=== PATIENT | female | born 1940 | race Caucasian/White ===

== ENCOUNTER → 2022-07-15 | Outpatient (CLI) | payer MEDICARE, OTHER ==
[~2022-07-15] MED LIST: IBUP800 PO
== END ==
LOC: LAB SHORT 15:30 → LAB 15:30
DX: R82.90 Unspecified abnormal findings in urine (principal)
CPT/HCPCS: 87086

== ENCOUNTER 2022-07-24 01:21 | Inpatient (IN) | payer MEDICARE, OTHER ==
[~2022-07-24] VITALS: Ht 149.9 cm; Wt 53.7 kg
[2022-07-24] MEDS ORDERED: SYNTHROID50 MC1 PO (02:13)
[2022-07-24] MEDS ORDERED: CARBIDOPA-LEVO1 EA15 PO (02:13)
[2022-07-24] MEDS ORDERED: TRAZ50 PO (02:13)
[2022-07-24] MEDS ORDERED: FOSAMAX70 MG PO (02:13)
[2022-07-24 02:31] LABS: BASOPHILS ABSOLUTE AUTO 0.02 K/mm3 (0.00-0.23); BASOPHILS PERCENT AUTO 0 % (0-2); EOSINOPHILS ABSOLUTE AUTO 0.01 K/mm3 (0.00-0.68); EOSINOPHILS PERCENT AUTO 0 % (0-6); Hematocrit 38.4 % (33.0-51.0); Hemoglobin 13.3 g/dL (11.5-16.0); IMMATURE GRAN ABSOLUTE AUTO 0.05 K/mm3 (0.00-0.10); IMMATURE GRAN PERCENT AUTO 1 % (0-1); LYMPHOCYTES PERCENT AUTO 39 % (21-46); MONOCYTES ABSOLUTE AUTO 0.19 K/mm3 (0.16-1.47); MONOCYTES PERCENT AUTO 3 % (4-13); Mean Corpuscular HGB 30.1 pg (26.0-34.0); Mean Corpuscular HGB Conc 34.6 g/dL (31.5-36.5); Mean Corpuscular Volume 87 fL (80-100); Mean Platelet Volume 10.3 fL (9.1-12.4); NEUTROPHILS ABSOLUTE AUTO 4.34 K/mm3 (1.96-9.15); NEUTROPHILS PERCENT AUTO 57 % (41-73); Platelet Count 414 K/mm3 (150-400); RDW Coefficient Variation 14.7 % (11.7-14.2); RDW Standard Deviation 46.6 fL (35.1-46.3); Red Blood Cell Count 4.42 M/mm3 (3.80-5.20); White Blood Cell Count 7.61 K/mm3 (4.00-11.30)
[2022-07-24 04:36] LABS: Albumin, Blood 3.1 g/dL (3.4-5.0); Bilirubin, Total 0.9 mg/dL (0.1-1.0); Bun/Creatinine Ratio 48.6 (12.0-20.0); Calcium, Blood 9.8 mg/dL (8.5-10.1); Creatinine, Blood 0.91 mg/dL (0.40-1.00); Globulin, Blood 3.1 g/dL (2.2-4.0); Potassium, Blood 2.4 mmol/L (3.5-5.5); Total Protein, Blood 6.2 g/dL (6.4-8.2)
--- NOTE | 2022-07-24 09:34 | NUR ---
PT ADMITTED TO ICU FROM ER AT 0841 FOR BOWEL PERF. PLANS TO TAKE PT TO SURGERY SHORTLY. PT AWAKE, ORIENTED AND ALERT. PT DENIES PAIN AT THIS TIME BUT HAS TENDERNESS WHEN ABD PALP. ABD IS VERY DISTENDED AND FIRM W ABSENT BT'S. PT DENIES NAUSEA. BP IS LOW W MAP >65. HR SINUS 80'S. AFEBRILE. SKIN WARM W GOOD CAP REFILL. K+ 40MEQ INFUSING. POWERGLIDE PLACED TO NEFTALY. PT LIMITED CODE, OKAY W INTUBATION, DOES NOT WANT CPR. BOLUS OF LR STARTED PER ANESTHEOLOGIST. PT'S DAUGHTER AND GRANDSON ARE AT BEDSIDE. NECKLACE AND WATCH GIVEN TO GRANDSON PER PT REQUEST.
--- NOTE | 2022-07-24 10:40 | NUR ---
PREPARED PT FOR SURGERY IN ICU ROOM. ABDOMEN PREPPED, SCDS PLACED ON, PAPERWORK ARRANGED.
[2022-07-24 11:32] LABS: Albumin, Blood 2.3 g/dL (3.4-5.0); Albumin/Globulin Ratio 0.9 (0.8-1.8); Bilirubin, Total 0.9 mg/dL (0.1-1.0); Bun/Creatinine Ratio 41.5 (12.0-20.0); Calcium, Blood 8.5 mg/dL (8.5-10.1); Creatinine, Blood 0.96 mg/dL (0.40-1.00); Globulin, Blood 2.5 g/dL (2.2-4.0); Potassium, Blood 2.5 mmol/L (3.5-5.5); Total Protein, Blood 4.8 g/dL (6.4-8.2)
--- NOTE | 2022-07-24 12:08 | NUR ---
DR ODOM AND DR MATTA IN TO SEE PT. PT TO OR AT 1208. LR BOLUS INFUSED X 2L. K+ RECHECKED AND REULTS GIVEN TO DR ODOM. ADDITIONAL 40MEQ ORDERED. DR MATTA ORDERED AN ADDITIONAL 2L LR TO BE STARTED/KVO.
--- NOTE | 2022-07-24 13:15 | NUR ---
07/24/22 1315 Travon Rothman ON SCHEDULED ANTIBIOTIC ZOSYN 4.5GM LAST DOSE GIVEN AT 0609
--- NOTE | 2022-07-24 18:44 | NUR ---
PT RETURNED FROM OR S/P TOTAL COLECTOMY WITH END ILEOSTOMY. STOMA PINK, NO OUTPUT. REPORT GIVEN AT BEDSIDE BY ANESTHESIOLOGIST AND HOT DOG VENDOR. RT CALLED PRIOR TO PT ARRIVING PT WOULD BE RETURNING INTUBATED. PT ARRIVED AT 1630 AND WAS EXTUBATED AROUND [address] MATTA. 100% NRB MASK PLACED, PT HAD ORAL AIRWAY IN. HEAD HEAD MIDLINE, RT AT BEDSIDE, PT STARTED TO DESATURATE. LUNGS COARSE W RHONCHI T/O. DR MANCUSO AT BEDSIDE SHORTLY AFTER EXTUBATION AND TOOK OVER CARE. PT GIVEN 20 OF ETOM. AT 1639 AND WAS REINTUBATED AT 1641 W 7.5 TUBE 24CM AT GUMS. PROPOFOL WAS STARTED THROUGH LEFT FOOT IV, LEVOPHED WAS AVAILABLE AT BEDSIDE. CENTRAL LINE TO LEFT IJ WAS PLACED RIGHT AFTER INTUBATION. AFTER LINE VARIFIED BY XR, PROPOFOL AND LEVOPHED PLACED TO CL. FENTANYL WAS GIVEN FOR PAIN, WHICH DID DROP PT'S PRESSURE. OGT PLACED AND VARIFIED BY XRAY AND PLACED TO LIS. PT WAS SUSPECTED OF POSSIBLE ASPIRATION IN OR. DARK VANESSA SPUTUM SAMPLE SENT. PROPOFOL IS NOW RUNNING AT 35MCG, LEVOPHED AT 2MCG, NS AT 100CC/HR. SCD'S PLACED. MIDLINE DRSG C/D/I. ABSENT BOWEL TONES. STAT LABS SENT. VENT SETTINGS 16/350/50/5. HARVEY WAS PLACED IN OR, ONLY 25CC U/O, DR MANCUSO AWARE. PT'S DAUGHTER AND FAMILY UPDATED BY DR ODOM, DR MATTA, AND DR MANCUSO. RIGHT AND LEFT ARM IV'S DID INFILTRATE. IV'S DC'D, ARM'S WRAPPED IN GAUZE AND REMOVED DURING BEDSIDE REPORT. BRUISING TO BOTH UPPER ARMS NEAR BEND IN ARM.
[2022-07-24 18:45] LABS: Hematocrit 37.2 % (33.0-51.0); Hemoglobin 12.5 g/dL (11.5-16.0); Mean Corpuscular HGB Conc 33.6 g/dL (31.5-36.5); Mean Corpuscular Volume 89 fL (80-100); Mean Platelet Volume 9.7 fL (9.1-12.4); Platelet Count 329 K/mm3 (150-400); RDW Standard Deviation 48.8 fL (35.1-46.3); Red Blood Cell Count 4.17 M/mm3 (3.80-5.20); White Blood Cell Count 4.79 K/mm3 (4.00-11.30)
[2022-07-24 19:01] LABS: Albumin, Blood 1.7 g/dL (3.4-5.0); Albumin/Globulin Ratio 0.8 (0.8-1.8); Calcium, Blood 7.7 mg/dL (8.5-10.1); Creatinine, Blood 0.87 mg/dL (0.40-1.00); Globulin, Blood 2.1 g/dL (2.2-4.0); Magnesium, Blood 1.4 mg/dL (1.6-2.4); Potassium, Blood 3.8 mmol/L (3.5-5.5); Total Protein, Blood 3.8 g/dL (6.4-8.2)
[2022-07-24 19:19] LABS: BAND PERCENT MAN 2 % (0-8); BASOPHILS PERCENT MAN 0 % (0-2); EOSINOPHILS PERCENT MAN 0 % (0-6); LYMPHOCYTES % ATYPICAL MANUAL 2 % (0-0); LYMPHOCYTES ABSOLUTE MAN 0.76 K/mm3 (0.84-5.20); LYMPHOCYTES PERCENT MAN 14 % (21-46); MONOCYTES ABSOLUTE MAN 0.19 K/mm3 (0.16-1.47); MONOCYTES PERCENT MAN 4 % (4-13); NEUTROPHILS ABSOLUTE MAN 3.83 K/mm3 (1.96-9.15); SEG NEUTROPHILS PERCENT MAN 78 % (41-73); TOTAL CELLS COUNTED 100
[2022-07-24 19:46] LABS: PCO2 Arterial 26.9 mmHg (35-45); PO2 Arterial 94.1 mmHg (80-100); pH Blood Arterial 7.48 (7.35-7.45)
--- NOTE | 2022-07-24 20:00 | NUR ---
ASSUMPTION OF CARE NOTE: INITIAL ASSESMENT DONE OF PATIENT. INTUBATED ACVC 60% PEEP 5 TV 350 RR 16. PROPOFOL AT 35 MCG/KG/MIN, LR AT 100, AND LEVOPHED AT 2 MCG/MIN. PT FAMILY AT BEDSIDE.
[2022-07-25 03:35] LABS: Base Excess Venous -2.3 mmol/L; Bicarbonate Venous 22.6 mmol/L (24.0-30.0); PCO2 Venous 31.4 mmHg (38-42); pH Blood Venous 7.45 (7.34-7.37)
[2022-07-25 03:46] LABS: Hematocrit 35.5 % (33.0-51.0); Hemoglobin 12.3 g/dL (11.5-16.0); Mean Corpuscular HGB 30.1 pg (26.0-34.0); Mean Corpuscular HGB Conc 34.6 g/dL (31.5-36.5); Mean Corpuscular Volume 87 fL (80-100); Mean Platelet Volume 10.1 fL (9.1-12.4); Platelet Count 320 K/mm3 (150-400); RDW Standard Deviation 48.2 fL (35.1-46.3); Red Blood Cell Count 4.08 M/mm3 (3.80-5.20); White Blood Cell Count 13.93 K/mm3 (4.00-11.30)
[2022-07-25 04:25] LABS: Albumin, Blood 1.5 g/dL (3.4-5.0); Albumin/Globulin Ratio 0.6 (0.8-1.8); Bilirubin, Total 0.9 mg/dL (0.1-1.0); Bun/Creatinine Ratio 29.5 (12.0-20.0); Calcium, Blood 7.8 mg/dL (8.5-10.1); Creatinine, Blood 1.29 mg/dL (0.40-1.00); Globulin, Blood 2.7 g/dL (2.2-4.0); Potassium, Blood 3.5 mmol/L (3.5-5.5); Total Protein, Blood 4.2 g/dL (6.4-8.2)
[2022-07-25 04:38] LABS: BAND PERCENT MAN 16 % (0-8); BASOPHILS PERCENT MAN 0 % (0-2); EOSINOPHILS PERCENT MAN 0 % (0-6); LYMPHOCYTES PERCENT MAN 18 % (21-46); METAMYELOCYTE ABSOLUTE MAN 0.55 K/mm3 (0.00-0.00); METAMYELOCYTE PERCENT MAN 4 % (0-0); MONOCYTES ABSOLUTE MAN 0.55 K/mm3 (0.16-1.47); MONOCYTES PERCENT MAN 4 % (4-13); MYELOCYTE ABSOLUTE MAN 0.13 K/mm3 (0.00-0.00); MYELOCYTE PERCENT MAN 1 % (0-0); NEUTROPHILS ABSOLUTE MAN 10.16 K/mm3 (1.96-9.15); SEG NEUTROPHILS PERCENT MAN 57 % (41-73); TOTAL CELLS COUNTED 100
--- NOTE | 2022-07-25 05:54 | NUR ---
PATIENT REMAINS INTUBATED, ACVC 30% TV 350 RR [address] HARVEY IN PLACE, UOP ONLY 40 ML. MD NOTIFIED, 1 LITER BOLUS GIVEN PER ORDER. PROPOFOL AT 10 MCG/KG/MIN, LR AT 100 ML/HR, AND LEVOPHED AT 2 MCG/MIN.
--- NOTE | 2022-07-25 11:51 | NUR ---
SBT PROPOFOL ON STANDBY. DR BEY AT BEDSIDE UPDATING PT AND FAMILY. PT PLACED ON PRESSURE SUPPORT 7/5, FIO2 30%. PLANS TO EXTUBATE AROUND 1400 IF PT TOLERATES PS WELL.
--- NOTE | 2022-07-25 17:59 | NUR ---
SHIFT SUMMARY PT DID WELL THIS SHIFT. PT EXTUBATED THIS AFTERNOON AND HAS DONE WELL ON 2L O2 NC. LEVOPHED TITRATED OFF THIS MORNING. VITAL SIGNS HAVE REMAINED STABLE. PT IS DROWSEY, BUT RESPONDS TO VERBAL STIMULI AND IS ABLE TO MAKE NEEDS KNOWN. PT DENIES PAIN WHEN ASKED. CENTRAL LINE TO LIJ C/D/I WITH LR INFUSING AT 100 ML/HR. ILEOSTOMY REMAINS BEEFY RED COLOR AND WITH SMALL AMOUNT OF LIQUID BILE OUTPUT THIS SHIFT. MIDLINE ABD INCISION REMAINS WITH YANNA WOUND VAC IN PLACE. HARVEY REMAINS IN PLACE WITH MINIMAL DARK YELLOW URINE OUTPUT NOTED. PT FAMILY AT BEDSIDE MOST OF THIS SHIFT. WILL CONTINUE TO MONITOR AND REPORT OFF TO ONCOMING RN.
[2022-07-25 20:09] LABS: Source, Urine Foley catheter
[2022-07-25 20:14] LABS: Appearance, Urine Hazy (Clear); Bilirubin, Urine Neg (Neg); Blood, Urine 3+ (Neg); Color, Urine Yellow (P-Yellow); Glucose Qualitative, Urine Neg (Neg); Ketones, Urine Neg (Neg); Leukocyte Esterase, Urine Neg (Neg); Nitrite, Urine Neg (Neg); Protein, Urine 1+ (Neg); Urobilinogen, Urine NORM (Normal)
[2022-07-25 20:21] LABS: Amorphous Mod (0-Heavy); Bacteria Mod /hpf; Mucus Light (0-Heavy); Squamous Epithelial Cells Few /hpf (Few); Transitional Epithelial Cells Rare /hpf (0-Rare)
[2022-07-25 20:22] LABS: Renal Epithelial Few /hpf (0-Rare)
[2022-07-26 04:08] LABS: Hematocrit 23.8 % (33.0-51.0); Hemoglobin 8.1 g/dL (11.5-16.0); Mean Corpuscular Volume 88 fL (80-100); Mean Platelet Volume 10.2 fL (9.1-12.4); Platelet Count 210 K/mm3 (150-400); RDW Coefficient Variation 15.1 % (11.7-14.2); White Blood Cell Count 13.07 K/mm3 (4.00-11.30)
[2022-07-26 04:29] LABS: Albumin, Blood 2.1 g/dL (3.4-5.0); Anion Gap 8 mmol/L (6-16); Blood Urea Nitrogen 41 mg/dL (8-24); Bun/Creatinine Ratio 23.2 (12.0-20.0); CO2, Blood 25 mmol/L (21-32); Calcium, Blood 7.8 mg/dL (8.5-10.1); Chloride, Blood 111 mmol/L (98-108); Creatinine, Blood 1.77 mg/dL (0.40-1.00); Glomerular Filtration Rate 28 (60-); Glucose, Blood 89 mg/dL (70-99); Phosphorus, Blood 3.3 mg/dL (2.5-4.9); Potassium, Blood 3.1 mmol/L (3.5-5.5); Sodium, Blood 144 mmol/L (136-145)
[2022-07-26 05:42] LABS: BAND PERCENT MAN 13 % (0-8); BASOPHILS PERCENT MAN 0 % (0-2); EOSINOPHILS PERCENT MAN 0 % (0-6); LYMPHOCYTES ABSOLUTE MAN 1.04 K/mm3 (0.84-5.20); LYMPHOCYTES PERCENT MAN 8 % (21-46); METAMYELOCYTE ABSOLUTE MAN 0.39 K/mm3 (0.00-0.00); METAMYELOCYTE PERCENT MAN 3 % (0-0); MONOCYTES ABSOLUTE MAN 0.13 K/mm3 (0.16-1.47); MONOCYTES PERCENT MAN 1 % (4-13); MYELOCYTE ABSOLUTE MAN 0.13 K/mm3 (0.00-0.00); MYELOCYTE PERCENT MAN 1 % (0-0); NEUTROPHILS ABSOLUTE MAN 11.37 K/mm3 (1.96-9.15); SEG NEUTROPHILS PERCENT MAN 74 % (41-73); TOTAL CELLS COUNTED 100
--- NOTE | 2022-07-26 06:25 | NUR ---
SHIFT SUMMARY PATIENT MENTATION IMPROVING OVERNIGHT. NOW A0X3-4. SR AND BP STABLE. O2 INCREASED TO 4L NC WHILE SLEEPING. OSTOMY PRODUCING DARK LIQUID STOOL. HARVEY IN PLACE AND URINE OUTPUT HAS IMPROVED.
--- NOTE | 2022-07-26 12:43 | NUR ---
DR. ODOM TO BEDSIDE DISCUSSED FINDINGS OF PROBABLE CANCER IN COLON AND REMOVAL WELL FINDING OF ADDITIONAL SPOTS SUSPICIOUS OF CANCER. PLAN WILL BE OUTPT VISIT TO SURGEON FOR F/U AND THEN REFERRAL TO ONCOLOGIST FOR FURTHER RECOMMENDATIONS. FAMILY AT BEDSIDE DURING CONVERSATION. PT ASKS APPROPRIATE QUESTIONS. SPEECH THERAPY SWALLOW EVAL ORDERED AND THEN DIET RECOMMENDED, START WITH CLEARS AND ADVANCE TOLERATED. RN TO CONTINUE TO FOLLOW
--- NOTE | 2022-07-26 19:41 | NUR ---
END OF SHIFT SUMMARY PT REMAINS ALERT AND ORIENTED. SINUS RHYTHM, BP WNL. TITRATED O2 DOWN TO 2L VIA NC, LUNG SOUNDS COARSE, COUGH WEAK. ILEOSTOMY OUTPUT LIQUID GREEN, TOTAL OUT 1125, BOWEL SOUNDS HYPOACTIVE. HARVEY PATENT AND DRAINING CLEAR YELLOW URINE. MIDLINE ABDOMINAL INCISION WITH YANNA DRAIN. LEFT IJ CENTRAL LINE D/C'D, PT TOLERATED WELL. LEFT POWERGLIDE PLACED, IVF D/C'D. PT IS PCU STATUS, AWAITING BED AVAILABILITY. ATTEMPTED RN SWALLOW EVAL, PT FAILED SWALLOWING MULTIPLE TIMES AND UNABLE TO CLEAR WATER IN BACK OF THROAT. SPEECH THERAPY SWALLOW EVAL ORDERED, TO BE COMPLETED TOMORROW. FAMILY AT BEDSIDE, UPDATED ON POC. PT WAS INFORMED OF SURGICAL FINDINGS INCLUDING CANCER. PLAN IS F/U WITH OUTPATIENT ONCOLOGY.
[2022-07-27 04:07] LABS: BASOPHILS ABSOLUTE AUTO 0.03 K/mm3 (0.00-0.23); BASOPHILS PERCENT AUTO 0 % (0-2); EOSINOPHILS PERCENT AUTO 0 % (0-6); Hematocrit 24.3 % (33.0-51.0); Hemoglobin 8.1 g/dL (11.5-16.0); IMMATURE GRAN ABSOLUTE AUTO 0.08 K/mm3 (0.00-0.10); IMMATURE GRAN PERCENT AUTO 1 % (0-1); LYMPHOCYTES ABSOLUTE AUTO 1.17 K/mm3 (0.84-5.20); LYMPHOCYTES PERCENT AUTO 9 % (21-46); MONOCYTES ABSOLUTE AUTO 0.52 K/mm3 (0.16-1.47); MONOCYTES PERCENT AUTO 4 % (4-13); Mean Corpuscular HGB 29.8 pg (26.0-34.0); Mean Corpuscular HGB Conc 33.3 g/dL (31.5-36.5); Mean Corpuscular Volume 89 fL (80-100); Mean Platelet Volume 10.2 fL (9.1-12.4); NEUTROPHILS ABSOLUTE AUTO 11.79 K/mm3 (1.96-9.15); NEUTROPHILS PERCENT AUTO 87 % (41-73); Platelet Count 218 K/mm3 (150-400); RDW Coefficient Variation 15.7 % (11.7-14.2); RDW Standard Deviation 51.1 fL (35.1-46.3); Red Blood Cell Count 2.72 M/mm3 (3.80-5.20); White Blood Cell Count 13.59 K/mm3 (4.00-11.30)
[2022-07-27 04:22] LABS: Albumin, Blood 1.8 g/dL (3.4-5.0); Anion Gap 12 mmol/L (6-16); Blood Urea Nitrogen 47 mg/dL (8-24); Bun/Creatinine Ratio 21.9 (12.0-20.0); CO2, Blood 19 mmol/L (21-32); Calcium, Blood 7.9 mg/dL (8.5-10.1); Chloride, Blood 116 mmol/L (98-108); Creatinine, Blood 2.15 mg/dL (0.40-1.00); Glomerular Filtration Rate 22 (60-); Glucose, Blood 82 mg/dL (70-99); Phosphorus, Blood 3.9 mg/dL (2.5-4.9); Potassium, Blood 3.5 mmol/L (3.5-5.5); Sodium, Blood 147 mmol/L (136-145)
--- NOTE | 2022-07-27 05:15 | NUR ---
SHIFT SUMMARY: PT. DID WELL OVERNIGHT AND REMAINED STABLE THROUGHOUT. ASIDE FROM SOME BILATERAL WEEPING IN THE ARMS, PT. HAS HAD NO COMPLAINTS OR EVENTS OVERNIGHT.
--- NOTE | 2022-07-27 07:14 | NUR ---
Assumed care at approximately 0700. Report received from nightshift RN. Pt resting in bed, on 02 via NC at 2 L/min. PG in KADEN. Abdominal inscision dressing in place with Emely wound vac, clean/dry/intact. Illeostomy in place, wnl. Santiago catheter in place. No acute needs, will continue to monitor.
--- NOTE | 2022-07-27 16:07 | NUR ---
transfer: PT ARRIVED TO ROOM 228 FROM ICU 10. PT ALERT AND ORIENTED. FORGETFUL. FAMILY AT BEDSIDE. PAS PLACED TO BLE. CIRC AND SENSATION WNL. PT HARVEY DRAINING MONSERRAT URINE. YANNA AND MIDLINE ABD DRESSING IN PLACE, CDI AT THIS TIME. PT DENIES PAIN OR NAUSEA. TOLERATING SMALL SIPS CLEAR LIQUIDS. SUCTION SET UP IN ROOM. ORDER PLACED FOR TELE. POWERGLIDE FLUSHING WELL. PT GIVEN SPIROMETRY AND ENCOURAGED TO USE. WILL CONT TO MONITOR AND TREAT. CALL LIGHT IN REACH.
--- NOTE | 2022-07-27 16:15 | NUR ---
TRANSFERRED PT TO SURGICAL FLOOR ROOM 228 AT APPROXIMATELY 1545. VS STABLE, NO ACUTE NEEDS AT TIME OF TRANSFER. REPORT GIVEN TO SURGICAL FLOOR RN.
[2022-07-27] MEDS ORDERED: Sinemet 25-1001 EACH PO (19:02)
[2022-07-27 21:44] LABS: Bun/Creatinine Ratio 25.3 (12.0-20.0); Calcium, Blood 8.3 mg/dL (8.5-10.1); Creatinine, Blood 1.94 mg/dL (0.40-1.00); Potassium, Blood 3.4 mmol/L (3.5-5.5)
--- NOTE | 2022-07-28 05:04 | NUR ---
SHIFT SUMMARY PT HAS RESTED T/O THE NIGHT. IV ANTIBIOTICS CONTINED ORDERED. OSTOMY AND HARVEY PATENT AND DRAINING. OSTOMY EMPTIED THIS SHIFT WITH ABOUT 400 MLS OUT. PT DENIES PAIN, NO N/V. A/OX4 AND CALLS APPROPRIATLY, VITALS STABLE. THERE IS SOME BRUSING/SWELLING WITH SMALL BLISTER NOTED TO PT RIGHT ARM UPON SKIN ASSESSMENT THIS SHIFT AREA WAS WEEPING SOME ONTO BILL PAD. PT DENIES PAIN OR ITCHING TO RIGHT ARM. WILL NOTIFY DAYSHIFT FOR FURTHER FOLLOW UP WITH DAYSHIFT ATTENDING. ASSESSMENT OTHERWISE UNCHANGED. BED IN LOWEST POSITION, CALL LIGHT WITHIN REACH.
[2022-07-28 06:11] LABS: Albumin, Blood 1.6 g/dL (3.4-5.0); Anion Gap 6 mmol/L (6-16); Blood Urea Nitrogen 46 mg/dL (8-24); Bun/Creatinine Ratio 25.3 (12.0-20.0); CO2, Blood 23 mmol/L (21-32); Calcium, Blood 8.2 mg/dL (8.5-10.1); Chloride, Blood 118 mmol/L (98-108); Creatinine, Blood 1.82 mg/dL (0.40-1.00); Glomerular Filtration Rate 27 (60-); Glucose, Blood 145 mg/dL (70-99); Potassium, Blood 3.3 mmol/L (3.5-5.5); Sodium, Blood 147 mmol/L (136-145)
[2022-07-28 07:05] LABS: BASOPHILS ABSOLUTE AUTO 0.04 K/mm3 (0.00-0.23); BASOPHILS PERCENT AUTO 0 % (0-2); EOSINOPHILS ABSOLUTE AUTO 0.01 K/mm3 (0.00-0.68); EOSINOPHILS PERCENT AUTO 0 % (0-6); Hematocrit 24.3 % (33.0-51.0); Hemoglobin 8.2 g/dL (11.5-16.0); IMMATURE GRAN PERCENT AUTO 2 % (0-1); LYMPHOCYTES ABSOLUTE AUTO 0.88 K/mm3 (0.84-5.20); LYMPHOCYTES PERCENT AUTO 8 % (21-46); MONOCYTES ABSOLUTE AUTO 0.59 K/mm3 (0.16-1.47); MONOCYTES PERCENT AUTO 6 % (4-13); Mean Corpuscular HGB 30.3 pg (26.0-34.0); Mean Corpuscular HGB Conc 33.7 g/dL (31.5-36.5); Mean Corpuscular Volume 90 fL (80-100); Mean Platelet Volume 10.7 fL (9.1-12.4); NEUTROPHILS ABSOLUTE AUTO 8.81 K/mm3 (1.96-9.15); NEUTROPHILS PERCENT AUTO 84 % (41-73); Platelet Count 253 K/mm3 (150-400); RDW Coefficient Variation 15.9 % (11.7-14.2); RDW Standard Deviation 51.6 fL (35.1-46.3); Red Blood Cell Count 2.71 M/mm3 (3.80-5.20); White Blood Cell Count 10.53 K/mm3 (4.00-11.30)
[2022-07-28 10:09] LABS: Calcium, Blood 8.3 mg/dL (8.5-10.1); Creatinine, Blood 1.8 mg/dL (0.40-1.00); Potassium, Blood 3.3 mmol/L (3.5-5.5)
--- NOTE | 2022-07-28 18:28 | NUR ---
SHIFT SUMMARY POD 3 FOR COLLECTOMY WITH END ILLIOSTOMY. PUTTING OUT MODERATE AMOUNTS OF LIQUID BROWN STOOL. PIC DRESSING IN PLACE WITH SCANT SHADOWING OF OLD DRIED DRAINAGE. HARVEY IN PLACE PATENT AND DRAINING. PATIENT TOLERATING PO INTAKE OF FL DIET. DENIES N/V. PATIENT REPOSITIONS WELL, PT TO EVALUATE ON FRIDAY. ABLE TO TAKE PILLS ONE AT TIME WHOLE WITH THIN LIQUIDS. SWALLOW PRECAUTIONS ARE IN PLACE PER ST. BED BATH AND ORAL CARE DONE TODAY. FAMILY IN TO VISIT. DENIES PAIN OR NEED FOR PAIN MEDICATION. SCDS IN PLACE. VSS. CALL LIGHT IN REACH.
--- NOTE | 2022-07-29 04:12 | NUR ---
SHIFT SUMMARY NO ACUTE CHANGES. PT RESTED WELL T/O SHIFT. ILEOSTOMY WITH DARK LIQUID OUTPUT. HARVEY PATENT AND DRAINING. TURNING Q2H. CALL LIGHT WITHIN REACH.
--- NOTE | 2022-07-29 20:01 | NUR ---
SHIFT SUMMARY PT HAS BEEN UP IN CHAIR FOR MAJORITY OF HER SHIFT. OSTOMY OUTPUT HAS THICKENED UP FROM THE LIQUID APPEARANCE LAST NIGHT. STOMA REMAINS PINK AND BEEFY. MIDLINE DRESSING CDI, NO CHANGES FROM BEGINNING OF SHIFT. PT EAGER TO GO HOME WITH DAUGHTER ONCE CLEARED. SHE CONTINUES TO DENY PAIN.
[2022-07-29 21:44] LABS: Bun/Creatinine Ratio 24.5 (12.0-20.0); Calcium, Blood 8.2 mg/dL (8.5-10.1); Creatinine, Blood 1.39 mg/dL (0.40-1.00); Potassium, Blood 3.7 mmol/L (3.5-5.5)
[2022-07-30 05:22] LABS: BASOPHILS ABSOLUTE AUTO 0.03 K/mm3 (0.00-0.23); BASOPHILS PERCENT AUTO 0 % (0-2); EOSINOPHILS ABSOLUTE AUTO 0.03 K/mm3 (0.00-0.68); EOSINOPHILS PERCENT AUTO 0 % (0-6); Hematocrit 26.3 % (33.0-51.0); Hemoglobin 8.6 g/dL (11.5-16.0); IMMATURE GRAN ABSOLUTE AUTO 0.32 K/mm3 (0.00-0.10); IMMATURE GRAN PERCENT AUTO 3 % (0-1); LYMPHOCYTES ABSOLUTE AUTO 1.49 K/mm3 (0.84-5.20); LYMPHOCYTES PERCENT AUTO 13 % (21-46); MONOCYTES ABSOLUTE AUTO 0.42 K/mm3 (0.16-1.47); MONOCYTES PERCENT AUTO 4 % (4-13); Mean Corpuscular HGB 29.8 pg (26.0-34.0); Mean Corpuscular HGB Conc 32.7 g/dL (31.5-36.5); Mean Corpuscular Volume 91 fL (80-100); Mean Platelet Volume 10.3 fL (9.1-12.4); NEUTROPHILS PERCENT AUTO 81 % (41-73); Platelet Count 295 K/mm3 (150-400); RDW Coefficient Variation 15.8 % (11.7-14.2); RDW Standard Deviation 52.5 fL (35.1-46.3); Red Blood Cell Count 2.89 M/mm3 (3.80-5.20); White Blood Cell Count 11.89 K/mm3 (4.00-11.30)
--- NOTE | 2022-07-30 05:28 | NUR ---
SHIFT SUMMARY PT ALERT AND ORIENTED, PLEASANT AND COOPERATIVE WITH CARE. NO ACUTE CHANGES. PT DID NOT NEED PAIN COVERAGE THIS SHIFT. OSTOMY OUTPUT BROWN/LIQUIDY. YANNA DRESSING C/D/I, GREEN LIGHT ON. TOLERATING PO INTAKE, WITH HEAD OF BED AT 90 DEGREES. FAMILY AT BEDSIDE THIS EVENING. CALLS APPROPRIATELY, CALL LIGHT WITHIN REACH.
[2022-07-30 05:48] LABS: Albumin, Blood 1.5 g/dL (3.4-5.0); Anion Gap 7 mmol/L (6-16); Blood Urea Nitrogen 32 mg/dL (8-24); Bun/Creatinine Ratio 21.5 (12.0-20.0); CO2, Blood 21 mmol/L (21-32); Calcium, Blood 8.3 mg/dL (8.5-10.1); Chloride, Blood 117 mmol/L (98-108); Creatinine, Blood 1.49 mg/dL (0.40-1.00); Glomerular Filtration Rate 35 (60-); Glucose, Blood 107 mg/dL (70-99); Magnesium, Blood 2.1 mg/dL (1.6-2.4); Phosphorus, Blood 3.3 mg/dL (2.5-4.9); Sodium, Blood 145 mmol/L (136-145)
[2022-07-30] MEDS ORDERED: AMOCLA500 PO (13:53)
[2022-07-30] MEDS ORDERED: OMEPRAZOLE PO (13:55)
[2022-07-30] MEDS ORDERED: LOPE2C PO (14:00)
[2022-07-30] MEDS ORDERED: VISBIOME 112.51 EACH PO (14:01)
--- NOTE | 2022-07-30 16:09 | NUR ---
DISCHARGE PT LEFT VIA WHEELCHAIR AT 1600. PT IS GOING TO [employer] WITH DAUGHTER. INSTRUCTIONS GONE OVER AT LENGTH WITH BOTH. INSTUCTIONS ON OSTOMY CHANGES GONE OVER WITH PATIENT. APPLIANCE CHANGED PRIOR TO LEAVING. MIDLINE INCISION LOOKS CDI NO REDNESS NOTED. STOMA PINK AND BEEFY. PT EXCITED TO GO HOME, SHE HAS BEEN AMBULATING DURING THE SHIFT WITH 1 ASSIST. DOES NOT WALK FAR BUT HAS BEEN MOVING.
== END 2022-07-30 16:05 | disposition home or self-care (01) | DRG 853 ==
LOC: ER 01:21 → ICUW 06:16 → SURS 06:16 → ICUW 07:06 → SURS 07-27 16:32
PROVIDERS: Emergency Medicine; Family Medicine; Internal Medicine Critical Care Medicine; Student in an Organized Health Care Education/Training Program; Surgery; ADMIT Internal Medicine
PROC: 0BH18EZ Insertion of Endotracheal Airway into Trachea, Via Natural or Artificial Opening Endoscopic (ICD-10-PCS; 2022-07-24)
PROC: 02HV33Z Insertion of Infusion Device into Superior Vena Cava, Percutaneous Approach (ICD-10-PCS; 2022-07-24)
PROC: 3E033XZ Introduction of Vasopressor into Peripheral Vein, Percutaneous Approach (ICD-10-PCS; 2022-07-24)
PROC: 3E03329 Introduction of Other Anti-infective into Peripheral Vein, Percutaneous Approach (ICD-10-PCS; 2022-07-24)
PROC: 5A1935Z Respiratory Ventilation, Less than 24 Consecutive Hours (ICD-10-PCS; 2022-07-24)
PROC: 0DTN0ZZ Resection of Sigmoid Colon, Open Approach (ICD-10-PCS; principal; 2022-07-24 10:15)
PROC: 0DBB0ZZ Excision of Ileum, Open Approach (ICD-10-PCS; 2022-07-24 10:15)
DX: A41.9 Sepsis, unspecified organism (principal); J96.01 Acute respiratory failure with hypoxia; K63.1 Perforation of intestine (nontraumatic); R65.21 Severe sepsis with septic shock; K65.8 Other peritonitis; C18.7 Malignant neoplasm of sigmoid colon; N17.9 Acute kidney failure, unspecified; K56.609 Unspecified intestinal obstruction, unspecified as to partial versus complete obstruction; C71.9 Malignant neoplasm of brain, unspecified; Z66 Do not resuscitate; E87.6 Hypokalemia; G20 Parkinson's disease; R34 Anuria and oliguria; M40.209 Unspecified kyphosis, site unspecified; M81.0 Age-related osteoporosis without current pathological fracture; E03.9 Hypothyroidism, unspecified; F32.A Depression, unspecified; K21.9 Gastro-esophageal reflux disease without esophagitis; E55.9 Vitamin D deficiency, unspecified; K66.8 Other specified disorders of peritoneum; B96.89 Other specified bacterial agents as the cause of diseases classified elsewhere; K44.9 Diaphragmatic hernia without obstruction or gangrene; J38.00 Paralysis of vocal cords and larynx, unspecified; Z90.49 Acquired absence of other specified parts of digestive tract; Z79.899 Other long term (current) drug therapy
CPT/HCPCS: 31500; 36415; 36556; 36600; 71045; 74177; 80048; 80053; 80069; 81001; 82803; 83605; 83690; 83735; 84100; 84132; 85025; 87070; 87086; 87205; 88309; 88341; 88342; 92526; 92610; 93005; 93010; 94002; 94003; 96365; 96375; 96376; 97110; 97116; 97162; 97166; 97530; 99285-25; A9270; C1751; C9113; J1100; J1644; J2250; J2370; J2405; J2543; J2704; J2795; J3010; J3475; J3480; J7030; J7042; J7050; J7060; J7120; P9047; Q9967